=== PATIENT | male | born 1965 | race Caucasian/White ===

== ENCOUNTER 2024-08-21 08:12 | Emergency (ER) | payer BC, SELFPAY ==
[2024-08-21] VITALS (8 sets, daily range): BP systolic 96–131; BP diastolic 44–73
[2024-08-21] MEDS: NSS 1000 IV ×2 (08:54→11:36)
[2024-08-21 09:01] LABS: % Basophils 0.4 % (0-2); % Eosinophils 0.6 % (0-6); % Immature Granulocytes 0.2 % (0-0.5); % Lymphocytes 13.9 % (20.5-51.1); % Monocytes 12.2 % (1.7-9.3); % Neutrophils 72.7 % (42.2-75.2); Absolute Eosinophils 0.1 10^3/uL (0-0.7); Absolute Lymphocytes 1.2 10^3/uL (1.2-3.4); Absolute Monocytes 1.1 10^3/uL (0.1-0.6); Absolute Neutrophils 6.5 10^3/uL (1.4-6.5); Hematocrit 41.4 % (39.0-52.0); Mean Corp Hgb Conc. 33.8 g/dL (33.0-37.0); Mean Corpuscular Hgb 29.7 pg (27.0-31.0); Mean Corpuscular Volume 87.7 fL (80.0-94.0); Mean Platelet Volume 10.5 fL (7.4-10.4); Nucleated Red Blood Cells % 0 % (-); Platelet Count 205 10^3/uL (130-400); Red Blood Cell Count 4.72 10^6/uL (4.70-6.10); Red Cell Dist. Width 14.5 % (11.5-14.5); White Blood Cell Count 8.9 10^3/uL (4.8-10.8)
[2024-08-21 09:02] LABS: COVID-19 Antigen Positive (Negative)
[2024-08-21] MEDS: LOPRESSOR 50 MG PO (09:04)
--- NOTE | 2024-08-21 09:23 | ED.GENMED ---
History of Present Illness
General
Chief Complaint: Cold/Flu/URI Symptoms
Source: patient
Exam Limitations: none
Time Seen by Provider: 08/21/24 08:30
History of Present Illness
History of Present Illness:
58-year-old male presents with 2 to 3 days worth of cough fatigue bilateral rib pain. He notes he has a history of pneumonia. He is anticoagulated for history of A-fib. He is on metoprolol 50 mg twice a day for rate control. He notes decreased
oral intake.
Past History
Past History
ED Past Medical History: Arrthythmia, Hypercholesterolemia, IDDM and Hypothyroidism
ED Past Surgical History: Appendectomy
Social History
Tobacco: Non-smoker
Alcohol: Occasional
Drug: None
Personal:
Living: with family
Employment: Employed
Family History
Family History: CAD
Phy Exam
Physical Exam
Physical Exam:
General: Well-appearing male no acute respiratory distress
HEENT: Normocephalic atraumatic
Heart: Regular rate and rhythm no murmurs
Lungs: Mostly clear bilaterally
Abdomen is soft nontender nondistended no guarding rebound normal bowel sounds
Extremities: No cyanosis or edema
Course
Orders/Labs/Results
Orders:
Orders
08/21/24 08:17
Electrocardiogram (*1) Urgent
Reason for Study: Tachycardia
EKG- Treatment ONCE
08/21/24 08:37
COVID-19 Antigen Urgent
Source: Nasal Swab
Influenza A+B Rapid Molecular Urgent
OTTONIEL Source: Nasal Swab
Specimen Description:
08/21/24 08:41
0.9% Sodium Chloride 1000 ml [Nss] 1,000 ml IV BOLUS
Metoprolol [Lopressor] 50 mg PO NOW STA
CR Chest - 2 Views Urgent
Comment:
Reason For Exam: cough, fever
08/21/24 08:51
Complete Blood Count/With Diff Urgent
Comprehensive Metabolic Panel Urgent
08/21/24 11:30
0.9% Sodium Chloride 1000 ml [Nss] 1,000 ml IV BOLUS
Abnormal Lab Results
08/21/24 08/21/24
08:37 08:51
MPV 10.5 H fL
(7.4-10.4)
Absolute Monos (auto) 1.1 H 10^3/uL
(0.1-0.6)
Lymphocytes % 13.9 L %
(20.5-51.1)
Monocytes % 12.2 H %
(1.7-9.3)
Glucose 136 H mg/dl
(70-99)
Alkaline Phosphatase 28 L U/L
(38-126)
SARS-CoV-2 Antigen Positive A
(Negative)
08/21/24 08:51
08/21/24 08:51
Vital Signs
Initial and Last Documented VS:
Initial Vital Signs
Temp Pulse Resp BP Pulse Ox
98.3 F 77 16 107/64 99
08/21/24 08:14 08/21/24 08:14 08/21/24 08:14 08/21/24 08:14 08/21/24 08:14
Last Documented Vital Signs
Temp Pulse Resp BP Pulse Ox
98.3 F 91 15 115/65 97
08/21/24 08:14 08/21/24 11:15 08/21/24 09:46 08/21/24 11:00 08/21/24 11:15
MDM/Problems Addressed
Differential Diagnosis Includes:
Fever cough fatigue myalgias. He has bilateral rib discomfort. Unlikely be PE as he is on Eliquis. Not hypoxic. He is noted to be in rapid atrial fibrillation. He has yet to take his metoprolol today. Could be dry from the illness. Fluids
ordered. COVID and flu ordered x-ray pending will check labs
COVID test was positive.
*Critical Care Note
Total Time (30-74mins, 75-104mins- exclusive of procedures): Not Applicable
Update Note
Update Note:
Patient received a liter of fluids and his heart rate normalized on back into a sinus rhythm. Chest x-ray clear he tested positive for COVID. Flu test negative. Patient is on multiple medicine. Discussed role for Paxil bid however recommended
against the use of this secondary to the potential side effects and medication interaction. He was okay with this. Will prescribe an albuterol inhaler. He stable for discharge as he is not hypoxic nor is he tachycardic.
ED Attending Note
-
Portions of this chart may have been created with voice recognition software.� Occasional wrong word or��sound alike� substitutions may have occurred due to the inherent limitations of voice recognition software.
Discharge Plan
Departure
Patient Disposition: Home (Routine Discharge)
Date of Disposition: 08/21/24
Time of Disposition: 14:18
Patient with high blood pressure during this ER visit?: No
Discharge Problem:
COVID-19
Instructions: Coronavirus Home Quarantine
Prescriptions:
New
albuterol sulfate 90 mcg/actuation HFA aerosol inhaler
2 puff inhalation Q6H PRN (Reason: shortness of breath or wheezing) Qty: 6.7 0RF
No Action
rosuvastatin 10 MG tablet
10 mg PO HS
Eliquis 5 MG tablet
5 mg PO BID
metoprolol succinate 100 MG tablet extended release 24 hr
100 mg PO DAILY Qty: 30 11RF
Rx Instructions:
Toprol XL (metoprolol succinate) replaced Lopressor (metoprolol tartrate)
nitroglycerin 0.4 MG tablet, sublingual
0.4 mg sublingual [id number] PRN (Reason: chest pain) Qty: 20 3RF
pioglitazone 45 mg Tablet
45 mg PO DAILY
levothyroxine [Synthroid] 88 mcg tablet
88 mcg PO DAILY
ramipril 10 mg Capsule
10 mg PO DAILY
insulin aspart U-100 [Novolog FlexPen U-100 Insulin] 100 unit/mL (3 mL) Insulin Pen
7 unit SC AC PRN (Reason: if pt eats)
oseltamivir 75 mg Capsule
75 mg PO BID Qty: 8 0RF
acetaminophen 325 mg Tablet
650 mg PO Q4HPRN PRN (Reason: mild pain/CAMPBELL/temp> 100.4F) Qty: 30 0RF
Mucinex 1,200 mg tablet extended release 12hr
1,200 mg PO Q12H Qty: 14 0RF
Xultophy 100/3.6 3 ML insulin pen
20 unit SQ HS Qty: 0 0RF
oxycodone-acetaminophen [Percocet] 5-325 mg tablet
1 - 2 tab PO Q8H PRN (Reason: Pain) Qty: 12 0RF
Referrals:
Quinn Alonso DO [Family Provider] -
Activity Restrictions/Additional Instructions:
Use inhaler as needed. Continue with current medications. Rest and drink plenty of fluids. Return if worse otherwise
Interventions
Interventions:
*Risk Screen - Suicide Last Done: 08/21/24 08:16
*Neglect/Abuse Screening Last Done: 08/21/24 08:16
ED- Fall Risk Assessment Last Done: 08/21/24 09:46
*ED COVID-19 Vaccine History Last Done: 08/21/24 08:15
ED- Pulmonary Assessment Last Done: 08/21/24 09:46
Discharge Date and Time
Print Language: TAIWANESE
[2024-08-21 09:25] LABS: ALT (SGPT) 23 U/L (0-50); AST (SGOT) 24 U/L (17-59); Albumin 4.1 g/dl (3.5-5.0); Alkaline Phosphatase 28 U/L (38-126); Blood Urea Nitrogen 19 mg/dl (9-20); Calcium 9.3 mg/dl (8.4-10.2); Carbon Dioxide 24 mmol/L (22-30); Chloride 103 mmol/L (98-107); Glucose 136 mg/dl (70-99); Potassium 4.1 mmol/L (3.5-5.1); Sodium 135 mmol/L (135-145); Total Bilirubin 0.5 mg/dl (0.2-1.3); Total Protein 6.5 g/dl (6.3-8.2); eGFR > 60.00
== END 2024-08-21 16:13 | disposition home or self-care (01) ==
LOC: EMR 08:12
PROVIDERS: Physician Assistant; EMERGENCY PHYSICIAN Emergency Medicine; FAMILY PHYSICIAN Family Medicine
DX: U07.1 COVID-19 (principal); I48.91 Unspecified atrial fibrillation; E03.9 Hypothyroidism, unspecified; E11.9 Type 2 diabetes mellitus without complications; E78.00 Pure hypercholesterolemia, unspecified; Z82.49 Family history of ischemic heart disease and other diseases of the circulatory system; Z87.01 Personal history of pneumonia (recurrent); Z90.49 Acquired absence of other specified parts of digestive tract; Z79.01 Long term (current) use of anticoagulants
CPT/HCPCS: 99283; 96360; 96361; 71046; 80053; 85025; 87502; 87811; 93005

== ENCOUNTER 2024-12-03 23:28 | Emergency (ER) | payer BC, SELFPAY ==
[2024-12-03 23:28] VITALS: BMI 38.9
[2024-12-03 23:29] VITALS: BP 134/84
--- NOTE | 2024-12-03 23:36 | ED.GENMED ---
History of Present Illness
<Maty Colon ELECTRIFICATION ADVISER - Last Filed: 12/04/24 00:35>
General
Chief Complaint: Abdominal Pain
Source: patient
Exam Limitations: none
Time Seen by Provider: 12/03/24 23:37
Nursing documentation reviewed up to this point in time: agreed with
History of Present Illness
History of Present Illness:
58-year-old male with history of A-fib on Eliquis, HTN, HLD, IDDM, hypothyroid, appendectomy, started Ozempic 2 months ago, presents for right sided abdominal pain 4 days ago, severe bloating and diarrhea past 2 days. Pain was 8/104 and 3 days ago,
now 5/10. No relieving or aggravating factors. Does have 1-2 days of abdominal pain, nausea and vomiting after he takes his Ozempic injection once a week. Denies f/c.
Past History
<Maty Colon, ELECTRIFICATION ADVISER - Last Filed: 12/04/24 00:35>
Past History
ED Past Medical History: Arrthythmia, Hypercholesterolemia, IDDM and Hypothyroidism
ED Past Surgical History: Appendectomy
Social History
Tobacco: Non-smoker
Alcohol: Occasional
Drug: None
Personal:
Living: with family
Employment: Employed
Family History
Family History: CAD
Review of Systems
<Maty Colon, ELECTRIFICATION ADVISER - Last Filed: 12/04/24 00:35>
Review of Systems
Allergies reviewed?: Yes
All Other Systems: ROS reviewed and negative except as documented in HPI and ROS
Constitutional: Denies fever
Respiratory: Denies trouble breathing
Cardiac: Denies chest pain
ABD/GI: Reports abdominal pain, nausea and diarrhea; Denies vomiting, bloody stools or black stools
: Denies dysuria, frequency or difficulty voiding
Musculoskeletal: Reports no symptoms
Skin: Reports no symptoms
Neurological: Reports no symptoms
Phy Exam
<Maty Colon, ELECTRIFICATION ADVISER - Last Filed: 12/04/24 00:35>
Physical Exam
Physical Exam:
GENERAL: No acute distress. A&Ox3.
CONSTITUTIONAL: Afebrile.
EYES: clear, conjunctivae normal
ENMT: moist mucus membranes, Pharynx nl
RESPIRATORY: Regular respirations, nonlabored, lungs clear.
CARDIOVASCULAR: Regular rate and rhythm, no murmurs, no rubs.
GI: Soft, obese, nontender at this time, normal BS
MUSCULOSKELETAL: Moves with ease. Well perfused.
SKIN: Warm, dry, pink
PSYCH: Normal mood and affect. Well kept, interactive and appropriate
NEUROLOGIC: Awake, alert and oriented. No focal neurological deficits
Course
<Maty Colon, ELECTRIFICATION ADVISER - Last Filed: 12/04/24 00:35>
Orders/Labs/Results
Orders:
Orders
12/03/24 23:37
Complete Blood Count/With Diff Urgent
Comprehensive Metabolic Panel Urgent
Urinalysis Reflex To Culture Urgent
Date Specimen was Collected: 12/04/24
Time Specimen was Collected: 00:00
12/03/24 23:50
0.9% Sodium Chloride 1000 ml [Nss] 1,000 ml IV BOLUS
12/04/24
CT Abd/Pel (IV only)-DH only Urgent
Reason For Exam: right abdominal pain
12/04/24 00:04
Lipase Urgent
Comment: ADD ON
12/04/24 01:13
Add On- LAB Urgent
Tests Added?: lipase
Abnormal Lab Results
12/04/24
00:04
Abs Immat Gran (auto) 0.1 H 10^3/uL
(0-0.05)
Absolute Monos (auto) 0.7 H 10^3/uL
(0.1-0.6)
Immature Gran % 0.7 H %
(0-0.5)
Monocytes % 10.0 H %
(1.7-9.3)
Chloride 108 H mmol/L
(98-107)
Glucose 142 H mg/dl
(70-99)
Alkaline Phosphatase 37 L U/L
(38-126)
Total Protein 6.1 L g/dl
(6.3-8.2)
12/04/24 00:04
12/04/24 00:04
Vital Signs
Initial and Last Documented VS:
Initial Vital Signs
Temp Pulse Resp BP Pulse Ox
98.4 F 70 20 134/84 96
12/03/24 23:29 12/03/24 23:29 12/03/24 23:29 12/03/24 23:29 12/03/24 23:29
Last Documented Vital Signs
Temp Pulse Resp BP Pulse Ox
98.4 F 67 18 120/66 97
12/03/24 23:29 12/04/24 02:31 12/04/24 02:31 12/04/24 02:31 12/04/24 02:31
Slicklt;Lavern Amaro PA-C - Last Filed: 12/04/24 05:16>
Orders/Labs/Results
Orders:
Orders
12/03/24 23:37
Complete Blood Count/With Diff Urgent
Comprehensive Metabolic Panel Urgent
Urinalysis Reflex To Culture Urgent
Date Specimen was Collected: 12/04/24
Time Specimen was Collected: 00:00
12/03/24 23:50
0.9% Sodium Chloride 1000 ml [Nss] 1,000 ml IV BOLUS
12/04/24
CT Abd/Pel (IV only)-DH only Urgent
Reason For Exam: right abdominal pain
12/04/24 00:04
Lipase Urgent
Comment: ADD ON
12/04/24 01:13
Add On- LAB Urgent
Tests Added?: lipase
Abnormal Lab Results
12/04/24
00:04
Abs Immat Gran (auto) 0.1 H 10^3/uL
(0-0.05)
Absolute Monos (auto) 0.7 H 10^3/uL
(0.1-0.6)
Immature Gran % 0.7 H %
(0-0.5)
Monocytes % 10.0 H %
(1.7-9.3)
Chloride 108 H mmol/L
(98-107)
Glucose 142 H mg/dl
(70-99)
Alkaline Phosphatase 37 L U/L
(38-126)
Total Protein 6.1 L g/dl
(6.3-8.2)
12/04/24 00:04
12/04/24 00:04
Vital Signs
Initial and Last Documented VS:
Initial Vital Signs
Temp Pulse Resp BP Pulse Ox
98.4 F 70 20 134/84 96
12/03/24 23:29 12/03/24 23:29 12/03/24 23:29 12/03/24 23:29 12/03/24 23:29
Last Documented Vital Signs
Temp Pulse Resp BP Pulse Ox
98.4 F 67 18 120/66 97
12/03/24 23:29 12/04/24 02:31 12/04/24 02:31 12/04/24 02:31 12/04/24 02:31
<Maty Colon, ELECTRIFICATION ADVISER - Last Filed: 12/04/24 00:35>
MDM/Problems Addressed
Differential Diagnosis Includes:
cholecystitis, biliary colic, pancreatitis, SE from
MDM/Problems Addressed:
58-year-old male with history of A-fib on Eliquis, HTN, HLD, IDDM, hypothyroid, appendectomy, started Ozempic 2 months ago, presents for right sided abdominal pain 4 days ago, severe bloating and diarrhea past 2 days. Pain was 8/104 and 3 days ago,
now 5/10. No relieving or aggravating factors. Does have 1-2 days of abdominal pain, nausea and vomiting after he takes his Ozempic injection once a week. Denies f/c.
Afebrile, NAD
12:30 a.m.
CBC:
CMP: No clinically significant abnormality
U/A neg
12:40 a.m.
Case discussed with Lavern NAPIER who will assume care from this point.
Pt remains stable
CT pending.
<Lavern Amaro PA-C - Last Filed: 12/04/24 05:16>
*Critical Care Note
Total Time (30-74mins, 75-104mins- exclusive of procedures): Not Applicable
<Lavern Amaro PA-C - Last Filed: 12/04/24 05:16>
Update Note
Update Note:
2:12 AM�I received sign out from the daily ELECTRIFICATION ADVISER. CAT scan is negative for any hydroureteronephrosis or perinephric stranding, negative for any colitis or appendicitis, negative for SBO. Patient states that he feels the same as prior and is still
having discomfort. Patient suspects his symptoms are from Ozempic. On my exam, he has no palpable tenderness and is well-appearing and afebrile. Patient stable for discharge. Advised follow-up with primary care, patient interested in seeing a GI,
referral given.
ED Attending Note
<Maty Colon ELECTRIFICATION ADVISER - Last Filed: 12/04/24 00:35>
-
Portions of this chart may have been created with voice recognition software.� Occasional wrong word or��sound alike� substitutions may have occurred due to the inherent limitations of voice recognition software.
Discharge Plan
Departure
Patient Disposition: Home (Routine Discharge)
Date of Disposition: 12/04/24
Time of Disposition: 02:27
Patient with high blood pressure during this ER visit?: Yes
Condition: Good
Discharge Problem:
Abdominal pain
Instructions: [place] diet, Abdominal Pain, BLOOD PRESSURE
Prescriptions:
No Action
rosuvastatin 10 MG tablet
10 mg PO HS
Eliquis 5 MG tablet
5 mg PO BID
metoprolol succinate 100 MG tablet extended release 24 hr
100 mg PO DAILY Qty: 30 11RF
Rx Instructions:
Toprol XL (metoprolol succinate) replaced Lopressor (metoprolol tartrate)
nitroglycerin 0.4 MG tablet, sublingual
0.4 mg sublingual [id number] PRN (Reason: chest pain) Qty: 20 3RF
pioglitazone 45 mg Tablet
45 mg PO DAILY
levothyroxine [Synthroid] 88 mcg tablet
88 mcg PO DAILY
ramipril 10 mg Capsule
10 mg PO DAILY
insulin aspart U-100 [Novolog FlexPen U-100 Insulin] 100 unit/mL (3 mL) Insulin Pen
7 unit SC AC PRN (Reason: if pt eats)
oseltamivir 75 mg Capsule
75 mg PO BID Qty: 8 0RF
acetaminophen 325 mg Tablet
650 mg PO Q4HPRN PRN (Reason: mild pain/CAMPBELL/temp> 100.4F) Qty: 30 0RF
Mucinex 1,200 mg tablet extended release 12hr
1,200 mg PO Q12H Qty: 14 0RF
Xultophy 100/3.6 3 ML insulin pen
20 unit SQ HS Qty: 0 0RF
oxycodone-acetaminophen [Percocet] 5-325 mg tablet
1 - 2 tab PO Q8H PRN (Reason: Pain) Qty: 12 0RF
albuterol sulfate 90 mcg/actuation HFA aerosol inhaler
2 puff inhalation Q6H PRN (Reason: shortness of breath or wheezing) Qty: 6.7 0RF
Referrals:
Liana Buckley MD [Active] - Call in 1-3 days for appt
Quinn Alonso DO [Family Provider] -
Activity Restrictions/Additional Instructions:
Your CT scan showed no evidence of obstructing kidney stone, no evidence of abnormalities of the gallbladder, biliary tract, or pancreas.
You can call the attached number to schedule an appointment with gastroenterology.
Please follow-up with your primary care provider.
PLEASE RETURN TO THE EMERGENCY DEPARTMENT SHOULD YOU DEVELOP AN ACUTE WORSENING OF YOUR SYMPTOMS, INTRACTABLE NAUSEA OR VOMITING, CHEST PAIN OR SHORTNESS OF BREATH, DARK TARRY STOOLS, BLOOD IN YOUR URINE, RECTAL BLEEDING, LIGHTHEADEDNESS, DIZZINESS,
FAINTING SPELLS, OR ANY OTHER SIGNS OR SYMPTOMS WORRISOME DEEP
Interventions
Interventions:
*Risk Screen - Suicide Last Done: 12/03/24 23:29
*General Assessment Last Done: 12/04/24 00:29
*Neglect/Abuse Screening Last Done: 12/03/24 23:29
*ED- Fall Risk Assessment Last Done: 12/04/24 00:29
*ED COVID-19 Vaccine History Last Done: 12/04/24 00:29
*Nursing Disposition Last Done: 12/04/24 02:44
ID-Xtniqw-Igtuewgvct Assessment Last Done: 12/04/24 00:29
Discharge Date and Time
Discharge Date/Time: 12/04/24 02:49
Print Language: LATVIAN
[2024-12-04] MEDS: NSS 1000 IV (00:01)
[2024-12-04 00:16] LABS: Urine Albumin Negative (Neg - Trace); Urine Bilirubin Negative (Negative); Urine Character Clear (Clear); Urine Color Yellow; Urine Glucose Negative (Negative); Urine Ketone Negative (Negative); Urine Leukocyte Negative (Negative); Urine Nitrite Negative (Negative); Urine Occult Blood Negative (Negative); Urine Specific Gravity 1.015 (<1.030); Urine Urobilinogen Negative (Neg - 1+)
[2024-12-04 00:28] LABS: ALT (SGPT) 29 U/L (0-50); AST (SGOT) 25 U/L (17-59); Albumin 3.8 g/dl (3.5-5.0); Alkaline Phosphatase 37 U/L (38-126); Blood Urea Nitrogen 15 mg/dl (9-20); Calcium 9.8 mg/dl (8.4-10.2); Carbon Dioxide 27 mmol/L (22-30); Chloride 108 mmol/L (98-107); Estimated Creatinine Clearance 101 ml/min; Glucose 142 mg/dl (70-99); Potassium 4.3 mmol/L (3.5-5.1); Sodium 139 mmol/L (135-145); Total Bilirubin 0.7 mg/dl (0.2-1.3); Total Protein 6.1 g/dl (6.3-8.2); eGFR > 60.00
[2024-12-04 00:39] LABS: % Basophils 0.5 % (0-2); % Eosinophils 2.2 % (0-6); % Immature Granulocytes 0.7 % (0-0.5); % Lymphocytes 35.1 % (20.5-51.1); % Neutrophils 51.5 % (42.2-75.2); Absolute Eosinophils 0.2 10^3/uL (0-0.7); Absolute Immature Granulocytes 0.1 10^3/uL (0-0.05); Absolute Lymphocytes 2.6 10^3/uL (1.2-3.4); Absolute Monocytes 0.7 10^3/uL (0.1-0.6); Absolute Neutrophils 3.8 10^3/uL (1.4-6.5); Hemoglobin 14.4 g/dL (13.0-18.0); Mean Corp Hgb Conc. 34.3 g/dL (33.0-37.0); Mean Corpuscular Hgb 30.1 pg (27.0-31.0); Mean Corpuscular Volume 87.9 fL (80.0-94.0); Mean Platelet Volume 10.2 fL (7.4-10.4); Nucleated Red Blood Cells % 0 % (-); Platelet Count 211 10^3/uL (130-400); Red Blood Cell Count 4.78 10^6/uL (4.70-6.10); Red Cell Dist. Width 14.4 % (11.5-14.5); White Blood Cell Count 7.3 10^3/uL (4.8-10.8)
[2024-12-04 01:08] VITALS: BP 130/61
[2024-12-04 01:10] VITALS: BP 130/61
[2024-12-04 02:00] VITALS: BP 112/57
[2024-12-04 02:00] LABS: Lipase 157 U/L (23-300)
[2024-12-04 02:30] VITALS: BP 120/66
[2024-12-04 02:31] VITALS: BP 120/66
== END 2024-12-04 02:49 | disposition home or self-care (01) ==
LOC: EMR 23:28
PROVIDERS: Registered Nurse; EMERGENCY PHYSICIAN Student in an Organized Health Care Education/Training Program; FAMILY PHYSICIAN Family Medicine
DX: R10.9 Unspecified abdominal pain (principal); R11.2 Nausea with vomiting, unspecified; I48.91 Unspecified atrial fibrillation; E03.9 Hypothyroidism, unspecified; E11.9 Type 2 diabetes mellitus without complications; E78.00 Pure hypercholesterolemia, unspecified; I10 Essential (primary) hypertension; Z79.01 Long term (current) use of anticoagulants; Z79.4 Long term (current) use of insulin; Z79.85 Long-term (current) use of injectable non-insulin antidiabetic drugs
CPT/HCPCS: 96360; 99284; 74177; 80053; 81003; 83690; 85025; Q9967

== ENCOUNTER 2025-08-03 21:13 | Emergency (ER) | payer BC, SELFPAY ==
[2025-08-03 21:21] VITALS: BP 126/93
[2025-08-03 21:46] LABS: Hematocrit 45.1 % (39.0-52.0); Hemoglobin 14.7 g/dL (13.0-18.0); Mean Corp Hgb Conc. 32.6 g/dL (33.0-37.0); Mean Corpuscular Volume 84.8 fL (80.0-94.0); Nucleated Red Blood Cells % 0 % (-); Platelet Count 232 10^3/uL (130-400); Red Cell Dist. Width 14.4 % (11.5-14.5)
[2025-08-03 21:57] LABS: ALT (SGPT) 36 U/L (0-50); AST (SGOT) 28 U/L (17-59); Albumin 4.3 g/dl (3.5-5.0); Alkaline Phosphatase 34 U/L (38-126); Blood Urea Nitrogen 21 mg/dl (9-20); Calcium 9.7 mg/dl (8.4-10.2); Carbon Dioxide 30 mmol/L (22-30); Chloride 105 mmol/L (98-107); Glucose 127 mg/dl (70-99); Potassium 4.2 mmol/L (3.5-5.1); Sodium 139 mmol/L (135-145); Total Protein 7.0 g/dl (6.3-8.2); eGFR > 60.00
[2025-08-03 22:01] LABS: Troponin I 0.018 ng/ml
--- NOTE | 2025-08-04 00:24 | ED.GENMED ---
History of Present Illness
<Octaviano Aleman MD, Resident - Last Filed: 08/04/25 00:46>
General
Chief Complaint: Cardiac Symptoms
Source: patient
Time Seen by Provider: 08/04/25 00:09
History of Present Illness
History of Present Illness:
Patient is a 59-year-old male with past medical history significant for essential hypertension, hyperlipidemia, diabetes mellitus, atrial fibrillation is on metoprolol 100 mg daily and Eliquis 5 mg twice daily came to the ER after he had
palpitations in his chest and his mobile christen continuously beeped for atrial fibrillation for last 6 hours.
For the last 2 hours, he has also noticed pain on the left side of his chest and he feels very anxious about a heart attack.
Denies any associated symptoms like nausea, vomiting, diet pheresis, cold sweats, lightheadedness, dizziness, presyncope or syncopal episodes.
Past History
<Octaviano Aleman MD, Resident - Last Filed: 08/04/25 00:46>
Past History
ED Past Medical History: Arrthythmia, Hypercholesterolemia, IDDM and Hypothyroidism
ED Past Surgical History: Appendectomy
Social History
Tobacco: Non-smoker
Alcohol: Occasional
Drug: None
Personal:
Living: with family
Employment: Employed
Family History
Family History: CAD
Review of Systems
<Octaviano Aleman MD, Resident - Last Filed: 08/04/25 00:46>
Review of Systems
All Other Systems: ROS reviewed and negative except as documented in HPI and ROS
Phy Exam
<Octaviano Aleman MD, Resident - Last Filed: 08/04/25 00:46>
General Physical Exam
General Presentation: other (anxious looking)
General age: appears stated age
General Skin: warm and dry
General Habitus: obese
Cardiovascular Exam
Cardiovascular Exam: no edema, no gallop, no JVD, no murmur and irregularly irregular
Pulmonary Exam
Pulmonary Exam: lungs clear and no respiratory distress
Gastrointestinal Exam
Gastrointestinal Exam: normal bowel sounds, non tender and soft
Neurological Exam
Neurological Exam: alert and oriented x3
Musculoskeletal Exam
Musculoskeletal Exam: full ROM
Skin Exam
Skin Exam: normal color and warm/dry
Psychiatric Exam
Psychiatric Exam: normal mood/affect
Course
<Octaviano Aleman MD, Resident - Last Filed: 08/04/25 00:46>
Orders/Labs/Results
Orders:
Orders
08/03/25 21:20
Electrocardiogram (*1) Urgent
Reason for Study: Chest Pain
EKG- Treatment ONCE
08/03/25 21:32
Complete Blood Count/With Diff Urgent
Comprehensive Metabolic Panel Urgent
TSH Reflex To Free T4 Urgent
Comment: ADD ON
Troponin I Urgent
08/04/25 00:24
ECG [Electrocardiogram (*1)] Urgent
Reason for Study: Chest Pain
EKG- Treatment ONCE
08/04/25 00:33
NT-proBNP Urgent
Comment: ADD ON
Troponin I Urgent
08/04/25 01:07
Add On- LAB Urgent
Tests Added?: TSH w reflex to free T-4; BNP
08/04/25 03:33
Troponin I Urgent
08/04/25 04:29
Apixaban [Eliquis] 5 mg PO NOW STA
Abnormal Lab Results
08/03/25
21:32
MCHC 32.6 L g/dL
(33.0-37.0)
Absolute Monos (auto) 0.8 H 10^3/uL
(0.1-0.6)
BUN 21 H mg/dl
(9-20)
Glucose 127 H mg/dl
(70-99)
Alkaline Phosphatase 34 L U/L
(38-126)
08/03/25 21:32
08/03/25 21:32
Vital Signs
Initial and Last Documented VS:
Initial Vital Signs
Temp Pulse Resp BP Pulse Ox
97.8 F 66 16 126/93 98
08/03/25 21:21 08/03/25 21:21 08/03/25 21:21 08/03/25 21:21 08/03/25 21:21
Last Documented Vital Signs
Temp Pulse Resp BP Pulse Ox
97.8 F 72 18 124/80 96
08/03/25 21:21 08/04/25 04:29 08/04/25 04:29 08/04/25 04:29 08/04/25 04:29
<Mary Casanova, DO - Last Filed: 08/04/25 04:41>
Orders/Labs/Results
Orders:
Orders
08/03/25 21:20
Electrocardiogram (*1) Urgent
Reason for Study: Chest Pain
EKG- Treatment ONCE
08/03/25 21:32
Complete Blood Count/With Diff Urgent
Comprehensive Metabolic Panel Urgent
TSH Reflex To Free T4 Urgent
Comment: ADD ON
Troponin I Urgent
08/04/25 00:24
ECG [Electrocardiogram (*1)] Urgent
Reason for Study: Chest Pain
EKG- Treatment ONCE
08/04/25 00:33
NT-proBNP Urgent
Comment: ADD ON
Troponin I Urgent
08/04/25 01:07
Add On- LAB Urgent
Tests Added?: TSH w reflex to free T-4; BNP
08/04/25 03:33
Troponin I Urgent
08/04/25 04:29
Apixaban [Eliquis] 5 mg PO NOW STA
Abnormal Lab Results
08/03/25
21:32
MCHC 32.6 L g/dL
(33.0-37.0)
Absolute Monos (auto) 0.8 H 10^3/uL
(0.1-0.6)
BUN 21 H mg/dl
(9-20)
Glucose 127 H mg/dl
(70-99)
Alkaline Phosphatase 34 L U/L
(38-126)
08/03/25 21:32
08/03/25 21:32
Vital Signs
Initial and Last Documented VS:
Initial Vital Signs
Temp Pulse Resp BP Pulse Ox
97.8 F 66 16 126/93 98
08/03/25 21:21 08/03/25 21:21 08/03/25 21:21 08/03/25 21:21 08/03/25 21:21
Last Documented Vital Signs
Temp Pulse Resp BP Pulse Ox
97.8 F 72 18 124/80 96
08/03/25 21:21 08/04/25 04:29 08/04/25 04:29 08/04/25 04:29 08/04/25 04:29
<Octaviano Aleman MD, Resident - Last Filed: 08/04/25 00:46>
MDM/Problems Addressed
Differential Diagnosis Includes:
Acute coronary syndrome
Atrial fibrillation
Panic attack
MDM/Problems Addressed:
Initial EKG and troponin negative for any abnormalities
CBC and CMP looks good
Repeat EKG and troponin in a couple of hours and then discuss further management
<Octaviano Aleman MD, Resident - Last Filed: 08/04/25 00:46>
*Pulse Oximetry
SaO2: 98
Oxygen Mode of Delivery: Room air
Patient hypoxic: no
*Critical Care Note
Total Time (30-74mins, 75-104mins- exclusive of procedures): Not Applicable
<Mary Casanova DO - Last Filed: 08/04/25 04:41>
*EKG
Interpreted by ED Provider?: Yes
Interpretation: normal
Comparison EKG: changes noted (Normal sinus rhythm has replaced atrial flutter noted on previous EKG August 2024)
Rate: normal
Rhythm: sinus
[place]: normal axis
Interval: normal interval
QRS Pattern: normal QRS
Ischemia: no ischemia
*Plunger Scoop Operator Interpretation
Rate: normal
Interpretation: normal
Rhythm: sinus
ED Attending Note
<Octaviano Aleman MD, Resident - Last Filed: 08/04/25 00:46>
-
Portions of this chart may have been created with voice recognition software.� Occasional wrong word or��sound alike� substitutions may have occurred due to the inherent limitations of voice recognition software.
<Mary Casanova DO - Last Filed: 08/04/25 04:41>
ED Attending Note
Patient seen and examined by attending physician: Yes
I performed a history and physical exam of patient and discussed management with resident, I reviewed resident's note and agree with documented findings and plan of care.: Yes
ED Attending Note:
59-year-old gentleman with history of hypertension, hyperlipidemia, hypothyroidism, insulin requiring diabetes as well as PAF presents with at least 6-hour long history of persistent atrial fibrillation with complaints of palpitations and his Apple
Watch noting variable heart rate from the 80s over 100 over the past 6 hours. He has noted mild left-sided chest ache ongoing for 2 hours prior to arrival. No other associated symptoms. He does have history of A-fib which generally occurs once or
twice a week but usually only lasts a few minutes with a similarly prolonged episode of A-fib lasting 6 to 8 hours while on vacation in April in [place]. Evaluated in the ED at that time, spontaneously converted to normal sinus rhythm.
Unremarkable laboratory studies and discharged to home.
He follows with a belt knife feeder, Dr. Concepcion at [facility] and due to increased episodes of A-fib he was planned to have a cardiac test which has been approved by his insurance but has not scheduled as yet at [facility]. He is
unsure as to the exact nature of this cardiac testing.
He admits that his belt knife feeder has also recommended EP evaluation, recommend considering A-fib ablation.
He is chronically maintained on metoprolol XL 100 mg as well as Eliquis 5 mg twice daily and has been compliant.
While en route to the hospital patient admits that palpitations have resolved and believes he is now back in normal sinus rhythm and has remained in normal sinus rhythm since arrival to the ED. Chest discomfort has also resolved.
He has no history of CAD.
59-year-old gentleman appears his stated age, bright and alert, pleasant, appears in no acute distress. is accompanying.
Heart is regular rate and rhythm in the 60s. No murmur no rub. No chest wall tenderness.
Lungs are clear to auscultation.
EKG shows normal sinus rhythm in the 60s. No acute ST-T wave abnormalities.
Monitor continues to show normal sinus rhythm.
Patient shows me clips of his EKG tracing from his smart watch showing atrial fibrillation with variable ventricular response with heart rate in the 80s to 110.
Labs thus far unremarkable. Initial troponin 0.018. Will plan to repeat troponin. Due to history of hypothyroidism will check TSH and will continue youth nutritional monitor.
01:30
Monitor continues to show normal sinus rhythm.
He remains asymptomatic. Chest pain-free.
Repeat troponin has trended up slightly 0.028. Remains within normal limits and not greater than 2 time rise in troponin.
TSH is normal.
Will plan to continue youth nutritional monitor and will repeat troponin at 330.
04:30
Troponin trending down 0.016.
I suspect minimal rise in troponin may have been A-fib/rate related.
Repeat EKG remains unchanged. No acute ST-T wave abnormalities.
Will discharge to home with plan for prompt follow-up with his primary belt knife feeder, Dr. Fatima.
Discharge Plan
Departure
Patient Disposition: Home (Routine Discharge)
Date of Disposition: 08/04/25
Time of Disposition: 04:31
Patient with high blood pressure during this ER visit?: No
Condition: Good
Discharge Problem:
Paroxysmal A-fib, Nonspecific chest pain
Instructions: Atrial fibrillation (DC), Chest Pain NON-[facility] Consulting Senior Practice Director Follow Up
Prescriptions:
No Action
rosuvastatin 10 MG tablet
10 mg PO HS
Eliquis 5 MG tablet
5 mg PO BID
metoprolol succinate 100 MG tablet extended release 24 hr
100 mg PO DAILY Qty: 30 11RF
Rx Instructions:
Toprol XL (metoprolol succinate) replaced Lopressor (metoprolol tartrate)
nitroglycerin 0.4 MG tablet, sublingual
0.4 mg sublingual [id number] PRN (Reason: chest pain) Qty: 20 3RF
pioglitazone 45 mg Tablet
45 mg PO DAILY
levothyroxine [Synthroid] 88 mcg tablet
88 mcg PO DAILY
ramipril 10 mg Capsule
10 mg PO DAILY
insulin aspart U-100 [Novolog FlexPen U-100 Insulin] 100 unit/mL (3 mL) Insulin Pen
7 unit SC AC PRN (Reason: if pt eats)
oseltamivir 75 mg Capsule
75 mg PO BID Qty: 8 0RF
acetaminophen 325 mg Tablet
650 mg PO Q4HPRN PRN (Reason: mild pain/[place]/temp> 100.4F) Qty: 30 0RF
Mucinex 1,200 mg tablet extended release 12hr
1,200 mg PO Q12H Qty: 14 0RF
Xultophy 100/3.6 3 ML insulin pen
20 unit SQ HS Qty: 0 0RF
oxycodone-acetaminophen [Percocet] 5-325 mg tablet
1 - 2 tab PO Q8H PRN (Reason: Pain) Qty: 12 0RF
albuterol sulfate 90 mcg/actuation HFA aerosol inhaler
2 puff inhalation Q6H PRN (Reason: shortness of breath or wheezing) Qty: 6.7 0RF
Referrals:
Marcos Fatima MD [Active, Cardiology] - Call in 1-3 days for appt
Quinn Alonso DO [Family Provider, Family Practice]
Interventions
Interventions:
*Risk Screen - Suicide Last Done: 08/03/25 21:21
*General Assessment Last Done: 08/04/25 00:14
*Neglect/Abuse Screening Last Done: 08/03/25 21:21
*ED- Fall Risk Assessment Last Done: 08/03/25 21:21
ED- Pulmonary Assessment Last Done: 08/04/25 00:14
ED- Cardiac Assessment Last Done: 08/04/25 00:14
Discharge Date and Time
Print Language: FAROESE
[2025-08-04 00:57] VITALS: BP 130/78
[2025-08-04 01:16] LABS: Troponin I 0.028 ng/ml
[2025-08-04 01:55] VITALS: BP 114/72
[2025-08-04 03:02] VITALS: BP 114/72
[2025-08-04 03:03] VITALS: BP 124/72
[2025-08-04 04:24] LABS: Troponin I 0.016 ng/ml
[2025-08-04 04:29] VITALS: BP 124/80
[2025-08-04] MEDS: ELIQUIS 5 MG PO (04:33)
== END 2025-08-04 04:39 | disposition home or self-care (01) ==
LOC: EMR 21:13
PROVIDERS: Emergency Medicine; EMERGENCY PHYSICIAN Emergency Medicine; FAMILY PHYSICIAN Family Medicine
DX: I48.0 Paroxysmal atrial fibrillation (principal); R07.89 Other chest pain; E03.9 Hypothyroidism, unspecified; E11.9 Type 2 diabetes mellitus without complications; E78.00 Pure hypercholesterolemia, unspecified; I10 Essential (primary) hypertension; Z79.01 Long term (current) use of anticoagulants; Z82.49 Family history of ischemic heart disease and other diseases of the circulatory system; Z90.49 Acquired absence of other specified parts of digestive tract
CPT/HCPCS: 99283; 80053; 83880; 84443; 84484; 85025; 93005